=== PATIENT | male | born 1985 | race Caucasian/White ===

== ENCOUNTER → 2017-10-15 | Outpatient (CLI) | payer OTHER ==
[~2017-10-15] MED LIST: IOPAMIDOL 76% 50 ML INFUS BTL 50 ML ONE; IOPAMIDOL 76% 75 ML INFUS BTL 75 ML ONE; NS 0.9% 20 ML SDV 40 ML ONE
--- NOTE | 2017-10-15 16:29 | RADIOLOGY IMAGING REPORT ---
FAC[place] [facility] [place]IENT NAME: Cathi Hull : 1985 MR: [id number] V: [id number] EXAM DATE: ORDERING PHYSICIAN: WOLFGANG MOLINA TECHNOLOGIST: Location: [facility] - [place] Patient: Cathi Hull : 1985 Visit/Account:[id number] Date of Sevice: 10/15/2017 Technique: KUB SINGLE VIEW ABDOMEN HISTORY: Hematuria Comparison studies: None FINDINGS: Imaged portions of the lung bases are clear. The bowel gas pattern is nonobstructive. No radiodense nephro or ureteral calculi are identified. IMPRESSION: 1. No nephro or ureteral calculi identified. Report Dictated By: Mathew Bates DO at 10/15/2017 4:24 PM Report E-Signed By: Mathew Bates DO at 10/15/2017 4:25 PM WSN:[id number]
--- NOTE | 2017-10-15 16:46 | RADIOLOGY IMAGING REPORT ---
FACILITY: [facility] - [place] PATIENT NAME: Cathi Hull : 1985 MR: [id number] V: [id number] EXAM DATE: ORDERING PHYSICIAN: WOLFGANG MOLINA TECHNOLOGIST: Location: [facility] Patient: Cathi Hull : 1985 Visit/Account:[id number] Date of Sevice: 10/15/2017 Technique: KUB SINGLE VIEW ABDOMEN HISTORY: Hematuria Comparison studies: None FINDINGS: Imaged portions of the lung bases are clear. No radiodense nephroureteral or ureteral calc ulus is identified. Postcontrast administration images show opacification of the urinary bladder, bi lateral ureters and bilateral collecting systems. No visualized hydronephrosis. Osseous structures are unremarkable. IMPRESSION: 1. No radiodense nephro or ureteral calculus. Report Dictated By: Mathew Bates DO at 10/15/2017 4:41 PM Report E-Signed By: Mathew Bates DO at 10/15/2017 4:42 PM WSN:[id number]
--- NOTE | 2017-10-15 17:14 | RADIOLOGY IMAGING REPORT ---
FACILITY: [facility] PATIENT NAME: Cathi Hull : 1985 MR: [id number] V: [id number] EXAM DATE: ORDERING PHYSICIAN: WOLFGANG MOLINA TECHNOLOGIST: Location: [facility] [place] Patient: Cathi Hull : 1985 Visit/Account:[id number] Date of Sevice: 10/15/2017 ABDOMEN/PELVIS W/WO CONTRAST HISTORY: Hematuria TECHNIQUE: Axial images acquired through the abdomen/pelvis both with and without IV contrast.. Dustin nal and sagittal reformatting also performed. One of the following dose optimization techniques was utilized in the performance of this exam: Automated exposure control; adjustment of the mA and/or kV according to the patient's size; or use of an iterative reconstruction technique. Specific details can be referenced in the facility's radiology CT exam operational policy. CONTRAST: 75 mL Isovue-370 COMPARISON: None. FINDINGS: Visualized lung bases: Negative. Hepatobiliary: Negative. Spleen: Negative. Adrenals: Negative. Pancreas: Negative. Kidneys ureters and bladder: The kidneys ureters and urinary bladder are normal in appearance. There is no evidence of stones or masses. Genitalia: Negative. GI: Negative. Vessels/spaces/nodes: Negative. Bones/soft tissues: Negative. Additional findings: None pertinent. IMPRESSION: Normal study. Etiology of patient's hematuria is not identified. Report Dictated By: Frank Juarez MD at 10/15/2017 5:03 PM Report E-Signed By: Frank Juarez MD at 10/15/2017 5:09 PM WSN:[id number]
== END ==
LOC: CT 08:52
DX: R31.1 Benign essential microscopic hematuria (principal)
CPT/HCPCS: 74018; 74178; J7050; Q9967

== ENCOUNTER 2017-11-09 03:20 | Day surgery (SDC) | payer OTHER ==
[~2017-11-09] VITALS: Ht 172.7 cm; Wt 73.0 kg
[2017-11-09 07:00] LABS: PLATELET COUNT, AUTOMATED 221 K/uL (150-450)
[2017-11-09 07:06] VITALS: BP 112/73
[2017-11-09] MEDS ORDERED: MIDAZOLAM 2 MG/2 ML VIAL IVP ONE (07:30)
[2017-11-09] MEDS ORDERED: LIDOCAINE/SOD BICARB 8.4% SYR ID ONE (07:30)
[2017-11-09] MEDS ORDERED: FAMOTIDINE 20 MG TAB PO ONE (07:30)
[2017-11-09] MEDS ORDERED: ceFAZolin(*) 1 GM VIAL 1 GM in NS(*) 0.9% 100 ML ADDVANT BAG 100 ML IV ONE (07:30)
[2017-11-09] MEDS ORDERED: NORMOSOL R SOLN(*) 1000 ML BAG 1,000 ML IV PRN (07:30)
[2017-11-09] MEDS ORDERED: fentaNYL CITR 100 MCG/2 ML AMP ONE ×2 (07:31→08:54)
[2017-11-09] MEDS ORDERED: PROPOFOL EMUL(*) 10MG/ML 20 ML 20 ML ONE (07:32)
[2017-11-09] MEDS ORDERED: DEXAMETHASONE SOD PHOS 10MG/ML ONE (07:32)
[2017-11-09] MEDS ORDERED: ONDANSETRON 4 MG/2 ML VIAL ONE (07:32)
[2017-11-09] MEDS ORDERED: LIDOCAINE MPF 1% 5 ML VIAL ONE (07:32)
[2017-11-09] MEDS ORDERED: HYDROCORTISONE 1% CR 28.35 GM TP ONE (08:19)
[2017-11-09] MEDS ORDERED: IOPAMIDOL-200 50 ML VIAL IS ONE (08:19)
[2017-11-09] MEDS ORDERED: KETOROLAC 30 MG/ML VIAL ONE (09:03)
[2017-11-09] MEDS ORDERED: CIPR-214 PO (09:34)
[2017-11-09] MEDS ORDERED: HYDR-389 PO (09:40)
[2017-11-09] MEDS ORDERED: FAMO20TA28 PO (09:41)
[2017-11-09] MEDS ORDERED: IBUP800T37 PO (09:42)
[2017-11-09 10:15] VITALS: BP 110/81
[2017-11-09 10:35] VITALS: BP 116/88
[2017-11-09 10:37] VITALS: BP 117/78
--- NOTE | 2017-11-09 11:36 | RADIOLOGY IMAGING REPORT ---
FACILITY: [facility] PATIENT NAME: Cathi Hull : 1985 MR: [id number] V: [id number] EXAM DATE: ORDERING PHYSICIAN: WOLFGANG MOLINA TECHNOLOGIST: Location: [facility] Patient: Cathi Hull : 1985 Visit/Account:[id number] Date of Sevice: 11/09/2017 Exam type: RETROGRADE PYELOGRAM History: RETROGRADES Comparison: CT October 15, 2017. Findings: 10 intraoperative fluoroscopic views of the abdomen pelvis were submitted. The total fluoroscopy nathaly e was seven seconds. The fluoroscopy dose was 4.62 mGray. Contrast is noted in both renal collecting systems and ureters. No intraluminal filling defects are identified. Cystoscope projects over the lower pelvis IMPRESSION: 1. As above Report Dictated By: Tamela Ji MD at 11/09/2017 11:22 AM Report E-Signed By: Tamela Ji MD at 11/09/2017 11:32 AM WSN:[email or web address]
--- NOTE | 2017-11-09 11:40 | OPERATIVE REPORT 1 ---
EVENT DATE: November 09, 2017 SURGEON: Braulio Wiseman MD ANESTHESIOLOGIST: Lenny Bush MD ANESTHESIA: General. PREOPERATIVE DIAGNOSIS Asymptomatic microscopic hematuria, etiology ?. POSTOPERATIVE DIAGNOSIS 1. Asymptomatic microscopic hematuria, etiology ?. 2. Probable chronic prostatitis. PROCEDURE PERFORMED 1. Cystourethroscopy. 2. Bilateral ureteral pyelograms. 3. Hydrodistention of the bladder. DESCRIPTION OF PROCEDURE Under general anesthetic, the patient was prepped and draped in the extended lithotomy position. The 21 panendoscope admitted through the urethra into the bladder. The urethra was normal. Prostate showed trilobar hyperplasia with obstruction, moderate median bar. Inflammatory polyps were small in the prostatic urethra, mostly on the right just proximal to the verumontanum. Bladder showed 3+ trabeculation. Trigone and ureteral orifices were normal. No bloody efflux from either orifice. Bilateral ureteral pyelograms were obtained. Ureteral pyelograms appeared to be grossly within normal limits in my opinion. Radiologist interpretation is pending. Bladder was filled under gravity. Flow was measured to a total of approximately 800 mL. On drainage of the bladder, there was no bloody drainage. On reinspection of the bladder, no glomerulations except at the bladder neck area extending up to the trigone circumferentially. No other lesions. Bladder was drained. Patient tolerated the procedure satisfactorily and returned to the recovery room in satisfactory condition. INDICATION FOR PROCEDURE This is a 32-year-old white male complaining of microscopic hematuria found on physical examination late September 2017. Patient states he had visible blood in the urine in 2010, saw a urologist. Urinalysis was normal. His urologist recommended routine follow up. He had no x-rays. Patient has nocturia, none. Flow is good. No dysuria or hematuria. Voids 3-4 times per day. No urinary incontinence. Urgency of urination none. No prior history of urinary tract infections or tract procedures. No urolithiasis. DISCHARGE INSTRUCTIONS Patient will be ready for discharge home when alert and functional, to force fluid, 2 liters per day. Activities are as tolerated. He is to continue his usual medications. Copy of instructions were given to the patient. Plan followup December 22, 2017. He is to call for an appointment. He was given a dose of Toradol in the recovery room. He will be discharged on Cipro therapy. It is my clinical impression that the patient has chronic prostatitis and will recommend antibiotic therapy for approximately 4-6 weeks. Patient also discharged on Pepcid, Motrin and Canvas therapy. Plan followup as previously alluded, and will recommend probable urine cytologies at that time. [facility]
== END 2017-11-09 10:15 | disposition home or self-care (01) ==
LOC: OR 03:20
DX: R31.21 Asymptomatic microscopic hematuria (principal)
CPT/HCPCS: 36415; 52005; 74420; 81001; 85025; 86580; 86606; 86612; 86635; 86698; 87088; C1758; J0690; J1100; J1885; J2001; J2250; J2405; J2704; J3010; J7050; Q9966

== ENCOUNTER → 2017-12-08 | Outpatient (CLI) | payer OTHER ==
[~2017-12-08] MED LIST changes: +CIPR-214 PO; +FAMO20TA28 PO; +HYDR-389 PO; +IBUP800T37 PO; -IOPAMIDOL 76% 50 ML INFUS BTL 50 ML ONE; -IOPAMIDOL 76% 75 ML INFUS BTL 75 ML ONE; -NS 0.9% 20 ML SDV 40 ML ONE
== END ==
LOC: LAB 15:26
DX: R31.0 Gross hematuria (principal)